=== PATIENT | female | born 1995 | race Caucasian/White ===

== ENCOUNTER 2018-08-02 05:02 | Inpatient (IN) | payer OTHER ==
[~2018-08-02] VITALS: Ht 162.6 cm; Wt 152.8 kg
[~2018-08-02 05:02] MED LIST: PREN-39 PO
[2018-08-02 05:30] VITALS: Ht 162.6 cm; Wt 152.8 kg
[2018-08-02] MEDS ORDERED: CEFAZOLIN 3 GM in DEXTROSE 5% 100 ML IV SCH (06:00)
[2018-08-02] MEDS ORDERED: OXYTOCIN 30 UNITS/LR 500 ML IV PRN (06:00)
[2018-08-02] MEDS ORDERED: METHYLERGONOVINE 0.2 MG INJ IM PRN (06:00)
[2018-08-02] MEDS ORDERED: MISOPROSTOL 200 MCG TAB PR PRN ×2 (06:00→08:00)
[2018-08-02] MEDS ORDERED: CARBOPROST 250 MCG INJ IM PRN (06:00)
[2018-08-02] MEDS: LACTATED RINGER'S 1,000 ML IV SCH ×3 (06:59→23:11)
[2018-08-02] MEDS ORDERED: OXYTOCIN 30 UNITS/LR 500 ML BAG IV ONE (07:00)
--- NOTE | 2018-08-02 07:14 | PREAC ---
Date/Time of Note Date/Time of Note DATE: 08/02/18 TIME: 07:13 Anesthesia Eval and Record Evaluation Time Pre-Procedure Interview DATE: 08/02/18 TIME: 07:13 Age 23 Sex female NPO: 8 hrs Preoperative diagnosis Repeat and BTL Planned procedure and BTL Past Medical History Past Medical History: Includes GI: Morbid obesity Heme: Anemia : : (3), Para: (2), Gestational age: (39) Surgery & Anesthesia Issues No known issue Meds Anticoagulation: No Beta Niles within 24 hr: No Reason Beta Niles not given: Pt. not on B-Niles Reported Medications Vits W-Ca,Fe,Fa(<1MG) ( Vitamins) 1 Tab Tablet, 1 TAB PO DAILY 10/19/13 Current Medications Lactated Ringer's 1,000 ml @ 125 mls/hr Q8H IV Last administered on 08/02/18at 06:59; Admin Dose 125 MLS/HR; Start 08/02/18 at 05:32 Cefazolin Sodium 3 gm/Dextrose 100 ml @ 100 mls/hr ONCE IV ; Start 08/02/18 at 06:00 Oxytocin/Lactated Ringer's 500 ml @ 125 mls/hr POST IV ; Start 08/02/18 at 06:00 Oxytocin/Lactated Ringer's 500 ml @ 0 mls/hr ONCE PRN IV .VAGINAL BLEEDING; Start 08/02/18 at 06:00 Methylergonovine Maleate (Methergine) 0.2 mg ONCE PRN IM .VAGINAL BLEEDING; Start 08/02/18 at 06:00 Carboprost Tromethamine (Hemabate) 250 mcg ONCE PRN IM .VAGINAL BLEEDING; Start 08/02/18 at 06:00 Misoprostol (Cytotec) 1,000 mcg ONCE PRN FL .VAGINAL BLEEDING; Start 08/02/18 at 06:00 Meds reviewed: Yes Allergies Coded Allergies: No Known Drug Allergies (Verified Allergy, Unknown, 10/19/13) Allergies Reviewed: Yes Labs/Studies Labs Reviewed: Reviewed by anesthesiologist Result Diagram: 08/02/18 0600 Laboratory Tests 08/02/18 06:00 test: Positive Studies: ECG (n/a), CXR (n/a) Pre-procedure Exam Airway: Adequate mouth opening, Adequate thyromental dist Mallampati: Mallampati II Teeth: Normal Lung: Normal Heart: Normal ASA Physical Status ASA physical status: 2 Emergency: None Planned Anesthetic Neuraxial: Spinal Planned Pain Management Sub-arachniod narcotics, Parenteral pain med Pre-operative Attestations Prior to commencing anesthesia and surgery, the patient was re-evaluated, there was verification of: *The patient's identity *The results of appropriate recent lab work and preoperative vital signs *The above evaluation not changing prior to induction *Anesthetic plan, risk benefits, alternative and complications discussed with patient/family; questions answered; patient/family understands, accepts and w ishes to proceed. RONIT MADRIGAL MD August 02, 2018 07:14
[2018-08-02] MEDS ORDERED: CITRIC ACID/NA CITRATE 30 ML CUP ONE (07:22)
[2018-08-02] MEDS ORDERED: ONDANSETRON 4 MG INJ ONE (07:22)
[2018-08-02] MEDS ORDERED: ONDANSETRON 4 MG INJ IV ONE (07:30)
[2018-08-02] MEDS ORDERED: CITRIC ACID/NA CITRATE 30 ML CUP PO ONE (07:30)
[2018-08-02] MEDS ORDERED: LACTATED RINGER'S 1,000 ML IV SCH (07:50)
--- NOTE | 2018-08-02 07:50 | HP ---
Date/Time of Note Date/Time of Note DATE: 08/02/18 TIME: 07:46 OB - History Hx of Present Free Text/Dictation 23 YO with EDC and IUP at 39 weeks who desires to have repeat delivery and Permanent sterilization. I discussed with the patient the risks, benefits, indications, and alternatives of procedure including but not limited to risks of infection, bleeding, damage to other organs, bowel, bladder, hernia formation, scar formation, possibility of blood transfusion, possible need for emergency hysterectomy, as well as the fact that tubal ligation may fail and there is 1 to 2% risk of failure over lifetime of tubal ligations and the fact that tubal ligation is permanent and irreversible. She was allowed to ask questions. All her questions were answered. Informed consent has been obtained.n Care: Good Care Ultrasounds: Normal mid trimester US Obstetrical Complications: Other (Morbid Obesity) Medical Complications: Other (Morbid Obesity) Past Family/Social History * Past Medical, Surgical, Family and Obstetric Histories reviewed from chart. OB Admission Exam Physical Exam HEENT: WNL Heart: Rhythm Normal Lungs: Clear, Equal Abdomen: WNL Extremities: Normal Reflexes: Normal Membranes: Intact Accelerations: Accelerations Present Decelerations: No Decelerations Last 72 hours Lab Results CBC & BMP 08/02/18 06:00 OB Assessment/Plan Other Assessment: IUP 39 weeks h/o prior deliveries x 2 Desires permanent sterilization Morbid Obesity BMI 51 Other plan: Repeat delivery and tubal sterilization LEO MCALLISTER MD August 02, 2018 07:50
[2018-08-02] MEDS ORDERED: OXYTOCIN 10 UNIT INJ ONE (07:56)
[2018-08-02] MEDS ORDERED: PHENYLephrine (100 MCG/ML) 10ML SYG ONE (07:56)
[2018-08-02] MEDS ORDERED: morphine SULFATE/PF (10 MG/10 ML) INJ ONE (07:56)
[2018-08-02] MEDS ORDERED: LANOLIN HPA 1 PKT TOP PRN (08:00)
[2018-08-02] MEDS ORDERED: NA PHOSPHATE/BIPHOS 133 ML ENEMA PR PRN (08:00)
[2018-08-02] MEDS ORDERED: OXYCODONE/ACETAMINOPHEN (5/325) TAB PO PRN (08:00)
[2018-08-02] MEDS ORDERED: KETOROLAC 30 MG INJ ONE (08:19)
[2018-08-02] MEDS ORDERED: METOCLOPRAMIDE 10 MG INJ ONE (08:19)
[2018-08-02] MEDS ORDERED: DEXAMETHASONE 4 MG/ML 1 ML INJ ONE (08:19)
[2018-08-02] MEDS ORDERED: MEPERIDINE 100 MG INJ ONE (08:49)
[2018-08-02] MEDS ORDERED: EPHEDrine SULFATE 50 MG/5 ML SYG IV PRN (09:00)
[2018-08-02] MEDS ORDERED: KETOROLAC 30 MG INJ IV PRN (09:00)
[2018-08-02] MEDS ORDERED: DIPHENHYDRAMINE 50 MG INJ IV PRN (09:00)
[2018-08-02] MEDS ORDERED: HYDROCODONE/APAP (5/325) TAB PO PRN (09:00)
[2018-08-02] MEDS ORDERED: NALOXONE (0.4 MG/ML) INJ IV PRN (09:00)
[2018-08-02] MEDS ORDERED: morphine 2 MG INJ IV PRN ×2 (09:00)
[2018-08-02] MEDS ORDERED: NALBUPHINE HCL (10 MG/1 ML) INJ IV PRN (09:00)
[2018-08-02] MEDS ORDERED: HYDROmorphONE 0.5 MG/0.5 ML SYG IV PRN ×2 (09:00)
[2018-08-02] MEDS ORDERED: ACETAMINOPHEN 500 MG TAB PO PRN (09:00)
[2018-08-02] MEDS ORDERED: ONDANSETRON 4 MG INJ IV PRN (09:00)
[2018-08-02] MEDS: SENNA/DOCUSATE NA (8.6MG/50MG) TAB PO SCH ×2 (09:00→21:56)
--- NOTE | 2018-08-02 09:10 | OPR ---
Date/Time of Note Date/Time of Note DATE: 08/02/18 TIME: 09:05 Operative Report Procedure Date: August 02, 2018 Preoperative Diagnosis IUP at 39 weeks Desires repeat delivery Desires permanent sterilization Postoperative Diagnosis same Operation/Procedure Performed Repeat delivery Bilateral tubal sterilization by Modifies [employer] Surgeon Anthony Mendoza MD Childcare [facility] Director Amanda Meredith MD Anesthesia Type: spinal Estimated Blood Loss: other (700 ml) Transfusion none Specimen segments of bilateral tubes Grafts/Implants none Tubes/Drains Nassar Cath Complications none Pt Condition Post Procedure: stable Disposition: PACU Procedure Description The risks, benefits, indications, alternatives of procedure including, but not limited to risk of infection, bleeding, damage to other organs, bowel, bladder, hernia formation, scar formation, possibility of blood transfusions, the risks of tubal ligation such as failure and future pregnancies were discussed with the patient. The fact that BTL is permanent and irreversible also discussed with patient. She was allowed to ask questions. All her questions were answered. Informed consent was obtained. DESCRIPTION OF PROCEDURE: She was taken to the operating room. Spinal anesthesia was induced. She was prepped and draped in the usual sterile fashion. Surgical time out one. Anesthesia was tested to be adequate. With permission from anesthesiologist, a knife was used to make a Pfannenstiel skin incision. The incision was taken down in layers. The fascia was cut, undermined and from the underlying muscle using sharp and blunt dissection. All the bleeders were cauterized. Peritoneum was entered bluntly. A low transverse incision was developed over the uterus. Amniotic fluid was clear and adequate. A viable infant in vertex presentation was delivered without any difficulty. The cord was clamped and cut, handed to awaiting team. Placenta was then delivered. Uterus was exteriorized, wrapped around a moist lap. Inside uterus was cleaned using a dry lap. All residual membranes were removed. The uterine incision was then closed using #1 Monocryl in 2 layers. bilateral tubes were adherent to uterus. he distal ends of the tubes were densely adherent to uterus on both sides. 4 cm mid ampullary portion of the right tube was ligated 3 times using 0 plain tie and the ligated portion was cut, sent to pathology. Same procedure was done on the contralateral side. The uterus was inserted back inside the abdominal cavity. Irrigation was done carefully. Careful evaluation of the uterine incision revealed no further bleeding. The tubal ligation sites were evaluated carefully. There was no bleeding. The peritoneum and rectus muscles and fascia were evaluated. All bleeders cauterized. Peritoneum was closed using 2-0 Monocryl. At this time, the count was correct. Rectus muscle was reapproximated using 2-0 Monocryl. Rectus fascia was closed using #1 Vicryl. Subcutaneous tissue was cleaned and irrigated. All bleeders cauterized and the skin closed using 4-0 Monocryl. All counts correct. ANTHONY MENDOZA MD August 02, 2018 09:10
--- NOTE | 2018-08-02 09:20 | PAC ---
Date/Time of Note Date/Time of Note DATE: 08/02/18 TIME: 09:20 Post-Anesthesia Notes Post-Anesthesia Note Last documented vital signs T:98.0 Activity: WNL Respiratory function: WNL Cardiovascular function: WNL Mental status: Baseline Pain reasonably controlled: Yes Hydration appropriate: Yes Nausea/Vomiting absent: Yes RONIT MADRIGAL MD August 02, 2018 09:20
[2018-08-02] MEDS: OXYTOCIN 30 UNITS/LR 500 ML IV SCH ×2 (09:53→15:34)
[2018-08-02] MEDS: IBUPROFEN 600 MG TAB PO SCH ×2 (12:00→15:32)
[2018-08-02 12:30] VITALS: BP 103/60; PULSE 68; RESP 20
[2018-08-02 16:18] VITALS: BP 114/69; PULSE 75
[2018-08-02 19:30] VITALS: BP 126/76; PULSE 80; RESP 19
[2018-08-03] VITALS: BP 124/56; PULSE 92; RESP 18
[2018-08-03 03:34] VITALS: BP 114/68; PULSE 93
[2018-08-03] MEDS: LACTATED RINGER'S 1,000 ML IV SCH (05:32)
[2018-08-03] MEDS: IBUPROFEN 600 MG TAB PO SCH ×5 (06:00→23:47)
[2018-08-03 08:00] VITALS: BP 118/66; PULSE 91; RESP 18
[2018-08-03] MEDS: SENNA/DOCUSATE NA (8.6MG/50MG) TAB PO SCH ×2 (08:48→21:59)
--- NOTE | 2018-08-03 15:15 | QN ---
Documentation Comment s/p c/s Subjective: no complaint Objective: Afebrile, VSS NAD A&O Abdomen: soft, appropriate tender Incision: no sign of bleeding/infection mild lochia Extremity: 1+ edema bilaterally Assessment: S/p C/S + BTL POD # 1 Recovering Well Plan: current care LEO MCALLISTER MD August 03, 2018 15:15
[2018-08-03 16:30] VITALS: BP 131/76; PULSE 97; RESP 18
[2018-08-03 19:45] VITALS: BP 106/56; PULSE 92; RESP 18
[2018-08-04 03:50] VITALS: BP_SYST 127; BP_SYST 90; BP_DIAS 59; PULSE 72; RESP 17
[2018-08-04] MEDS: IBUPROFEN 600 MG TAB PO SCH ×4 (05:44→23:42)
[2018-08-04 08:20] VITALS: BP 138/81; PULSE 88; RESP 19
[2018-08-04] MEDS: SENNA/DOCUSATE NA (8.6MG/50MG) TAB PO SCH ×2 (08:58→21:04)
[2018-08-04] MEDS: OXYCODONE/ACETAMINOPHEN (5/325) TAB PO PRN ×2 (10:26→21:08)
[2018-08-04 16:00] VITALS: BP 134/76; PULSE 83; RESP 17
--- NOTE | 2018-08-04 16:03 | PN ---
Date/Time of Note Date/Time of Note DATE: 08/04/18 TIME: 16:03 OB Subjective Subjective Subjective 08/04/2018 Denies any nausea or vomiting, denies any fever or chills, Reports decreased vaginal bleeding. passed flatus. Breast feeding. OB Objective Objective Objective GA: A&O, NAD Abdomen: soft, appropriate tenderness in the section incision noted Incision, clean, dry and intact Lungs: Clear to auscultation bilaterally CV: RRR Breasts: No evidence of mastitis or fissure Extremities: No calf tenderness, no click no edema negative Homans sign VS - Last 72 Hours, by Label Date Temp Pulse Resp B/P (MAP) Pulse Ox O2 O2 Flow FiO2 Time Delivery Rate 08/04/18 98.1 88 19 138/81 Room Air 08:20 (100) 08/04/18 98.4 72 17 127/59 Room Air 03:50 (81) 08/03/18 99.0 92 18 106/56 Room Air 19:45 (73) 08/03/18 98.6 97 18 131/76 Room Air 16:30 (94) 08/03/18 98.7 91 18 118/66 Room Air 08:00 (83) 08/03/18 98.6 93 114/68 98 Room Air 03:34 (83) 08/03/18 98.6 92 18 124/56 98 Room Air 00:00 (78) 08/02/18 98.5 80 19 126/76 97 Room Air 19:30 (93) 08/02/18 98.3 75 114/69 98 16:18 (84) 08/02/18 98.1 68 20 103/60 98 12:30 (74) OB Assessment/Plan Other Assessment: Postoperative day #2 Status post repeat section Doing well Routine postop care anticipate DC home tomorrow VIK ELLINGTON MD August 04, 2018 16:03
[2018-08-04 20:00] VITALS: BP 135/71; PULSE 101; RESP 18
[2018-08-04] MEDS: POLYSACCHARIDE IRON COMPLEX CAP PO SCH (21:04)
[2018-08-04] MEDS: DOCUSATE SODIUM 100 MG CAP PO SCH (21:04)
[2018-08-05 04:00] VITALS: BP 128/75; PULSE 84; RESP 17
[2018-08-05] MEDS: OXYCODONE/ACETAMINOPHEN (5/325) TAB PO PRN (05:03)
[2018-08-05] MEDS: IBUPROFEN 600 MG TAB PO SCH ×3 (05:26→18:01)
[2018-08-05 08:20] VITALS: BP 129/66; PULSE 92; RESP 17
[2018-08-05] MEDS ORDERED: MEASLES,MUMPS,RUBELLA VACCINE INJ SC* ONE (09:00)
[2018-08-05] MEDS ORDERED: DIPHTH/TET/ACEL PERTUSS (ADULT) 0.5 ML VIAL IM* ONE (09:00)
[2018-08-05] MEDS: DOCUSATE SODIUM 100 MG CAP PO SCH (09:06)
[2018-08-05] MEDS: SENNA/DOCUSATE NA (8.6MG/50MG) TAB PO SCH (09:06)
[2018-08-05] MEDS: POLYSACCHARIDE IRON COMPLEX CAP PO SCH (09:06)
--- NOTE | 2018-08-05 11:19 | QN ---
Documentation Comment POD# 3 is stable afebrile tolerates diet No VB +BM +voids VS stable Gen NAD Abd soft NT ND Incision intact Genitalia No blood at perineum --->Discharge anderson Fuentes RAMIN M.D. August 05, 2018 11:19
--- NOTE | 2018-08-05 11:20 | DS ---
Date/Time of Note Date/Time of Note DATE: 08/05/18 TIME: 11:19 Discharge Summary Admission/Discharge Info Admit Date/Time August 02, 2018 at 05:02 Discharge Date/Time 08/05/2018 Discharge Diagnosis Patient Condition: Good Hospital Course uneventful Home Meds Reported Medications Vits W-Ca,Fe,Fa(<1MG) ( Vitamins) 1 Tab Tablet, 1 TAB PO DAILY 10/19/13 Primary Care Provider Care Physician No Primary CARY PINEDA M.D. August 05, 2018 11:19
--- NOTE | 2018-08-06 19:10 | DELSUM ---
Delivery Summary A-C Datetime Report Generated by CPN: 08/06/2018 19:10 DELIVERY PERSONNEL General Scrap Worker: Mnany Winters MATERNAL INFORMATION Delivery Anesthesia: Spinal Medications in Delivery: SEE ANESTHESIA RECORD Delivery QBL (ml): 700 Placenta Cultured: No Maternal Complications: None LABOR SUMMARY EDC: 08/09/2018 00:00 No. Babies in Womb: 1 Attempted: No Labor Anesthesia: None LABOR INFORMATION Reason for Induction: Not Applicable Oxytocin: N/A Group B Beta Strep: Negative Antibiotics # of Doses: X1 3G ANCEF Antibiotics Time of Last Dose: 08/02/2018 07:45 Steroids Given: None Reason Steroids Not Administered: Not Applicable MEMBRANES Membranes Rupture Method: Artificial Rupture of Membranes: 08/02/2018 08:23 Length of Rupture (hr): 0.00 Amniotic Fluid Color: Clear Amniotic Fluid Amount: Moderate Amniotic Fluid Odor: None STAGES OF LABOR Stage 3 hr: 0 Stage 3 min: 1 CSECTION DELIVERY Primary Indication: Repeat Elective Secondary Indication: N/A CSection Urgency: Elective CSection Incidence: Repeat Labor: No Labor Elective: Elective CSection Incision: Lower Uterine Transverse Sterilization Procedure: Kennedy BABY A INFORMATION Infant Delivery Date/Time: 08/02/2018 08:23 Method of Delivery: Born in Route : No : N/A Forceps: N/A Vacuum Extraction: N/A Shoulder Dystocia : No SHOULDER DYSTOCIA BABY A Delivery Date/Time: 08/02/2018 08:23 PRESENTATION/POSITION BABY A Presentation: Cephalic Cephalic Presentation: N/A Breech Presentation: N/A PLACENTA INFORMATION BABY A Placenta Delivery Time : 08/02/2018 08:24 Placenta Method of Delivery: Manual Removal Placenta Status: Delivered SCORES BABY A Heart Rate 1 min: >100 bpm Resp Effort 1 min: Good Cry Reflex Irritability 1 min: Cough/Sneeze/Pulls Away Muscle Tone 1 min: Active Motion Color 1 min: Body [place], Extremit Blue Resuscitation Effort 1 min: Tactile Stimulation SCORE 1 MIN: 9 Heart Rate 5 min: >100 bpm Resp Effort 5 min: Good Cry Reflex Irritability 5 min: Cough/Sneeze/Pulls Away Muscle Tone 5 min: Active Motion Color 5 min: Body [place], Extremit Blue Resuscitation Effort 5 min: Tactile Stimulation SCORE 5 MIN: 9 INFORMATION BABY A Gestational Age at Delivery: 39.0 Gestational Status: Full Term- 39- 40.6 Weeks Outcome : Liveborn Infant Condition : Stable Sex: Female IDENTIFICATION/MEDS BABY A ID Band Number: [id number] ID Band Location: Right Leg; Left Arm Sensor Applied: Yes Sensor Number: [id number] Sensor Location : Cord Clamp Vitamin K Given : Not Given Erythromycin Given: Not Given WEIGHT/LENGTH BABY A Birthweight (gm): 4555 Infant Weight (lb): 10 Weight (oz): 1 Infant Length (in): 20.50 Length (cm): 52.07 CORD INFORMATION BABY A No. Cord Vessels: 3 Nuchal Cord : N/A Cord Blood Taken: Yes Infant Suction: Mouth; Nose ASSESSMENT BABY A Infant Complications: None Physical Findings at Delivery: Within Normal Limits Infant Respirations: Appears Normal Clerk General/ALS Called : No Care By: MORRIS RN/ RT Transferred To: Remains with Mother
== END 2018-08-05 19:09 | disposition home or self-care (01) | DRG 785 ==
LOC: L-D 05:02 → PP1 12:21
PROVIDERS: ADMIT Specialist; ATTEND Specialist
PROC: 0UB70ZZ Excision of Bilateral Fallopian Tubes, Open Approach (ICD-10-PCS; 2018-08-02)
PROC: 10D00Z1 Extraction of Products of Conception, Low, Open Approach (ICD-10-PCS; principal; 2018-08-02 07:30)
DX: O34.219 Maternal care for unspecified type scar from previous cesarean delivery (principal); O99.214 Obesity complicating childbirth; E66.01 Morbid (severe) obesity due to excess calories; O90.81 Anemia of the puerperium; Z3A.39 39 weeks gestation of pregnancy; Z37.0 Single live birth; Z30.2 Encounter for sterilization; Z23 Encounter for immunization
CPT/HCPCS: 85025; 85610; 85730; 86592; 86850; 86900; 86901; 87340; 88302; 99464; J0690; J1100; J1885; J2175; J2274; J2370; J2405; J2590; J2765; J7120